=== PATIENT | female | born 1935 | race Caucasian/White ===

== ENCOUNTER 2017-10-23 07:06 | Emergency (ER) | payer MEDICARE ==
[2017-10-23 07:26] VITALS: BP 154/80
--- NOTE | 2017-10-24 21:57 | UC ---
- Progress Note Progress Note: + UTI + E. Coli on BActrim await sensitivity no change [facility] 10/24/2017
--- NOTE | 2017-11-05 16:16 | UC ---
Jacobo Penny Natalie, scribed for Linda Mancini DO on 10/23/17 at 0744 . Complaint Female HPI - HPI Summary HPI Summary: The pt is an 82 presenting to [facility] c/o UTI symptoms starting yesterday. On 10/09, the patient was diagnosed with a UTI and was prescribed Amoxicillin, which she finished on 10/18/17. Yesterday the pt noticed awareness of bladder and frequent urination. Pt denies back pain, flank pain, tenderness at opening of urethra, diarrhea, SOB, headache, fever, chills, rashes, confusion, and unsteady gait. She has had recurring UTIs since May 2017. The patient has a urology appointment with Dr. Valdez on 11/02/17. - History Of Current Complaint Chief Complaint: UCGU Stated Complaint: URINARY ISSUE Time Seen by Provider: 10/23/17 07:19 Hx Obtained From: Patient Onset/Duration: Lasting Hours - started yesterday, Still Present Timing: Lasting Hours Severity Initially: Mild Severity Currently: Mild Aggravating Factor(s): Nothing Alleviating Factor(s): Nothing Associated Signs And Symptoms: Positive: Vaginal Bleeding/Discharge. Negative: Fever, Back Pain - Allergies/Home Medications Allergies/Adverse Reactions: Allergies Allergy/AdvReac Type Severity Reaction Status Date / Time No Known Allergies Allergy Verified 10/23/17 07:25 Home Medications: Home Medications Aspirin [Aspirin 81 MG TAB] 81 mg PO DAILY 10/23/17 [History Confirmed 10/23/17] Calcium Carbonate-Cholecalcife [Calcium 600 + D 600-200 mg-Unit] 1 tab PO DAILY 10/23/17 [History Confirmed 10/23/17] Conjugated Estrogens VAG CM* [Premarin VAG CREAM*] 0.5 applic VAGINAL .SEE DIRECTIONS 10/23/17 [History Confirmed 10/23/17] Lisinopril [Zestril 5 MG-] 5 mg PO DAILY 10/23/17 [History Confirmed 10/23/17] Metoprolol Succinate [Metoprolol Succinate ER] 25 mg PO DAILY 10/23/17 [History Confirmed 10/23/17] Probiotic Product [Acidophilus] 1 cap PO DAILY 10/23/17 [History Confirmed 10/23] PMH/Surg Hx/FS Hx/Imm Hx Previously Healthy: No Cardiovascular History: Hypertension GI/ History: Other - recurring UTI Other GI/ History: recurring UTI - Surgical History Surgical History: Yes Surgery Procedure, Year, and Place: tonsillectomy - Family History Known Family History: Negative: Hypertension, Diabetes - Social History Alcohol Use: Daily Alcohol Amount: wine with diner Substance Use Type: None Smoking Status (MU): Never Smoked Tobacco - Immunization History Most Recent Influenza Vaccination: fall 2016 Review of Systems Constitutional: Other - NEGATIVE: fever, chills Skin: Other - NEGATIVE: rash Respiratory: Other - NEGATIVE: SOB Gastrointestinal: Other - NEGATIVE: flank pain, diarrhea Genitourinary: Hematuria, Frequency - increased, Other - POSITIVE: awareness of bladder; NEGATIVE: tenderness at opening of urethra Neurovascular: Other - NEGATIVE: confusion, unsteady gait Musculoskeletal: Other: - NEGATIVE: back pain All Other Systems Reviewed And Are Negative: Yes Physical Exam Triage Information Reviewed: Yes Vital Signs: Initial Vital Signs Temp 97.7 F 10/23/17 07:20 Pulse 69 10/23/17 07:20 Resp 16 10/23/17 07:20 BP 154/80 10/23/17 07:20 Pulse Ox 99 10/23/17 07:20 Vital Signs Reviewed: Yes - Additional Comments Appearance: Well-Appearing, No Pain Distress, Well-Nourished Eyes: conjunctiva clear, no discharge ENT: Hearing grossly normal, normal voice Neck: Normal, Supple Respiratory/Lung Sounds: Lungs clear, Normal breath sounds, No respiratory distress, No accessory muscle use Cardiovascular: RRR, No murmur Musculoskeletal: Normal Neurological: Alert, muscle tone normal Psychiatric: Normal, age appropriate behavior Skin: Normal, Warm, Dry, Normal color Complaint Female Dx - Course Course Of Treatment: Patient will be discharged with prescription for Bactrim and follow up from PCP. The patient is agreeable with this plan. Medications reviewed. Allergies reviewed. High blood pressure noted. - Differential Dx/Diagnosis Provider Diagnoses: UTI, HTN Discharge - Discharge Plan Condition: Stable Disposition: HOME Prescriptions: Sulfamethox/Trimethoprim DS* [Bactrim DS 800/160 TAB*] 1 tab PO BID #10 tab Patient Education Materials: Urinary Tract Infection in Older Adults (ED) Referrals: Branden Etienne MD [Medical Doctor] - If Needed No Primary Care Phys,NOPCP [Primary Care Provider] - Selvin Alvarez MD [Medical Doctor] - 11/02/17 Additional Instructions: ANTIBIOTIC THERAPY: You have been given an antibiotic prescription. It's important that you take all the medication, unless instructed otherwise by your physician. Failure to complete the entire course can result in relapse of your condition. Common side effects of antibiotics include nausea, intestinal cramping, or diarrhea. Women may develop vaginal yeast infections, and babies can get yeast (thrush) in the mouth following the use of antibiotics. Contact your physician if you develop significant side effects from this medication. Allergy to this antibiotic can result in hives, wheezing, faintness, or itching. If symptoms of allergy occur, stop the medication and call the doctor. ANYTIME YOU TAKE AN ANTIBIOTIC, IT IS IMPORTANT TO REPLENISH THE BODY'S SUPPLY OF "GOOD BACTERIA." YOU CAN GET GOOD BACTERIA FROM HIGH QUALITY CULTURED FOODS SUCH LOCAL YOGURT, SOUR KRAUT, LEONARD BRENDAN, NATURALLY FERMENTED PICKLES AND PROBIOTIC DRINKS. YOU CAN ALSO GET GOOD BACTERIA FROM A PROBIOTIC SUPPLEMENT. The documentation as recorded by the Jacobo laboy Natalie accurately reflects the service I personally performed and the decisions made by me, Linda Mancini DO.
== END 2017-10-23 08:05 | disposition home or self-care (01) ==
LOC: UCEAST 07:06
DX: N39.0 Urinary tract infection, site not specified (principal); R31.9 Hematuria, unspecified; B96.20 Unspecified Escherichia coli [E. coli] as the cause of diseases classified elsewhere; Z87.440 Personal history of urinary (tract) infections; I10 Essential (primary) hypertension
CPT/HCPCS: 81003; 87077; 87086; 87186; 99212; G0463

== ENCOUNTER 2017-11-25 15:17 | Emergency (ER) | payer MEDICARE ==
[2017-11-25 15:44] VITALS: BP 151/78
--- NOTE | 2017-11-25 16:10 | UC ---
Complaint Female HPI - History Of Current Complaint Chief Complaint: UCGU Stated Complaint: UTI Time Seen by Provider: 11/25/17 15:52 Hx Obtained From: Patient ?: No Onset/Duration: Sudden Onset - started last night with dysuria Severity Initially: Mild Severity Currently: Moderate Pain Intensity: 0 Character: Burning Aggravating Factor(s): Urination Alleviating Factor(s): Nothing Associated Signs And Symptoms: Negative: Fever, Vaginal Discharge - Allergies/Home Medications Allergies/Adverse Reactions: Allergies Allergy/AdvReac Type Severity Reaction Status Date / Time No Known Allergies Allergy Verified 11/25/17 15:45 PMH/Surg Hx/FS Hx/Imm Hx Previously Healthy: Yes Cardiovascular History: Hypertension - Surgical History Surgical History: Yes Surgery Procedure, Year, and Place: tonsillectomy - Family History Known Family History: Negative: Hypertension, Diabetes - Social History Occupation: Retired Lives: With Family Alcohol Use: Daily Alcohol Amount: wine with diner Substance Use Type: None Smoking Status (MU): Never Smoked Tobacco - Immunization History Most Recent Influenza Vaccination: fall 2016 Review of Systems Constitutional: Negative Respiratory: Negative Cardiovascular: Negative Gastrointestinal: Negative Genitourinary: Dysuria, Frequency, Urgency Neurological: Negative Psychological: Negative Is Patient Immunocompromised?: No All Other Systems Reviewed And Are Negative: Yes Physical Exam Triage Information Reviewed: Yes Appearance: Well-Appearing, No Pain Distress, Well-Nourished Vital Signs: Initial Vital Signs Temp 97.3 F 11/25/17 15:42 Pulse 73 11/25/17 15:42 Resp 12 11/25/17 15:42 BP 151/78 11/25/17 15:42 Pulse Ox 99 11/25/17 15:42 Vital Signs Reviewed: Yes Respiratory Exam: Normal Cardiovascular Exam: Normal Abdomen Description: Positive: Nontender, No Organomegaly, Soft Psychological Exam: Normal Skin Exam: Normal Complaint Female Dx - Differential Dx/Diagnosis Differential Diagnosis/HQI/PQRI: Ureteral Stone, Urinary Tract Infection Provider Diagnoses: UTI Discharge - Discharge Plan Condition: Stable Disposition: HOME Prescriptions: Levofloxacin TAB* [Levaquin TAB*] 250 mg PO DAILY #10 tab Referrals: Branden Etienne MD [Primary Care Provider] - 2 Days (if no better) Additional Instructions: DRink plenty of fluids use levaquin antibiotic as ordered follow-up with urologist as planned
== END 2017-11-25 16:39 | disposition home or self-care (01) ==
LOC: UCEAST 15:17
DX: N39.0 Urinary tract infection, site not specified (principal)
CPT/HCPCS: 81003; 87077; 87086; 87186; 99212; G0463

== ENCOUNTER 2018-05-30 09:22 | Emergency (ER) | payer MEDICARE ==
[2018-05-30 09:39] VITALS: BP 158/58
--- NOTE | 2018-05-30 09:53 | UC ---
Complaint Female HPI - HPI Summary HPI Summary: An 82 y/o F presents to E with c/o of hematuria first noticed this AM. Associated sx: frequency. Denies abd pain, n/v, fever, chills, back pain. She has a known kidney stone, but has no abd pain. Patient has about 3 UTIs per year. Patient sees Dr. Alvarez, urology. PMHx: HTN, arrhythmia. Non-smoker, occ ETOH, no drugs. - History Of Current Complaint Chief Complaint: UCGU Stated Complaint: URINARY ISSUE Time Seen by Provider: 05/30/18 09:32 Hx Obtained From: Patient Onset/Duration: Still Present, Other - noticed today Severity Currently: None Pain Intensity: 0 Pain Scale Used: 0-10 Numeric Associated Signs And Symptoms: Negative: Fever, Back Pain, Nausea, Vomiting(# Of Episodes =) - Allergies/Home Medications Allergies/Adverse Reactions: Allergies Allergy/AdvReac Type Severity Reaction Status Date / Time No Known Allergies Allergy Verified 05/30/18 09:39 Home Medications: Home Medications Simvastatin 20 mg PO DAILY WITH MEAL 05/30/18 [History Confirmed 05/30/18] PMH/Surg Hx/FS Hx/Imm Hx Previously Healthy: No Cardiovascular History: Hypertension Other Respiratory History: neg: asthma GI/ History: Other - recurring UTI Other GI/ History: recurring UTI - Surgical History Surgical History: Yes Surgery Procedure, Year, and Place: tonsillectomy - Family History Known Family History: Positive: Cardiac Disease Negative: Hypertension, Diabetes - Social History Occupation: Retired Lives: With Family Alcohol Use: Daily Alcohol Amount: wine with diner Substance Use Type: None Smoking Status (MU): Never Smoked Tobacco - Immunization History Most Recent Influenza Vaccination: fall 2016 Review of Systems Constitutional: Negative - fever, chills Gastrointestinal: Negative - abd pain, nausea, vomiting Genitourinary: Hematuria, Frequency Musculoskeletal: Negative - back pain All Other Systems Reviewed And Are Negative: Yes Physical Exam - Summary Physical Exam Summary: VITAL SIGNS: Reviewed. GENERAL: Patient is a well-developed and nourished FEMALE who is lying comfortable in the stretcher. Patient is not in any acute respiratory distress. HEAD AND FACE: Normocephalic EYES: PERRLA, EOMI x 2. EARS: Hearing grossly intact. MOUTH: Oropharynx within normal limits. NECK: Supple, trachea is midline, no adenopathy, no JVD, no carotid bruit. CHEST: Symmetric, no tenderness at palpation LUNGS: Clear to auscultation bilaterally. No wheezing or crackles. CVS: Regular rate and rhythm, S1 and S2 present, no murmurs or gallops appreciated. ABDOMEN: Soft, non-tender. Bowel sounds are normal. No abdominal abnormal pulsations. EXTREMITIES: Full ROM in all major joints, no edema, no cyanosis or clubbing. NEURO: Alert and oriented x 3. No acute neurological deficits. Speech is normal and follows commands. SKIN: Dry and warm Triage Information Reviewed: Yes Vital Signs: Initial Vital Signs Temp 98.2 F 05/30/18 09:33 Pulse 70 05/30/18 09:33 Resp 20 05/30/18 09:33 BP 158/58 05/30/18 09:33 Pulse Ox 71 05/30/18 09:33 Vital Signs Reviewed: Yes Complaint Female Dx - Course Course Of Treatment: The patient was found to have increased BP in UC. The patient will follow up with PCP for better control of BP. . Patient is an 82-year-old female who presents to the urgent care with hematuria, dysuria and urinary frequency. Urinalysis positive for leukocytes. Patient was given Bactrim. Patient was discharged home with follow-up with primary care physician and Dr. Alvarez who is her urologist. - Differential Dx/Diagnosis Provider Diagnoses: UTI. Discharge - Sign-Out/Discharge Documenting (check all that apply): Patient Departure - DC All imaging exams completed and their final reports reviewed: No Studies - Discharge Plan Condition: Stable Disposition: HOME Prescriptions: Sulfamethox/Trimethoprim DS* [Bactrim DS 800/160 TAB*] 1 tab PO BID #20 tab Patient Education Materials: Urinary Tract Infection in Women (ED) Referrals: Branden Etienne MD [Primary Care Provider] - Additional Instructions: FOLLOW UP WITH YOUR PRIMARY CARE PROVIDER WITHIN ONE WEEK FOR HIGH BLOOD PRESSURE NOTED TODAY. - Billing Disposition and Condition Condition: STABLE Disposition: Home - Attestation Statements Document Initiated by Scribe: Yes Documenting Scribe: Adriana Azevedo Provider For Whom Chiomaibe is Documenting (Include Credential): Jeffry Bhandari MD Scribe Attestation: Adriana Penny, scribed for Jeffry Bhandari MD on 05/30/18 at 1042. Scribe Documentation Reviewed: Yes Provider Attestation: The documentation as recorded by the scribe, Adriana Azevedo accurately reflects the service I personally performed and the decisions made by Jeffry bhat MD [employer] Course/Dx - Course Course Of Treatment: The patient was found to have increased BP in UC. The patient will follow up with PCP for better control of BP. - Clinical Impression Provider Diagnoses: UTI (urinary tract infection) Lab Results - Lab Results Lab Results: 05/30/18 09:49 POC Urine Color Light yellow POC Urine Clarity Slightly cloudy POC Urine pH 6.0 POC Ur Specif [place] <= 1.005 L POC Urine Protein Negative POC Ur Glucose (UA) Negative POC Urine Ketones Negative POC Urine Blood 3+ A POC Urine Nitrite Negative POC Urine Bilirubin Negative POC Urine Urobilinogen 0.2 POC U Leukocyte Esteras 3+ A
--- NOTE | 2018-05-31 16:15 | UC ---
- Progress Note Progress Note: 05/31/2018 Urine culture positive for E.Coli. Pt Rx Bactrim PO which cover for E.coli. Pending final report for sensitivity. No change Summer Lynn PA-C Course/Dx - Diagnoses Provider Diagnoses: UTI (urinary tract infection) Discharge - Sign-Out/Discharge Documenting (check all that apply): Patient Departure - D/c home All imaging exams completed and their final reports reviewed: No Studies - Discharge Plan Condition: Stable Disposition: HOME Prescriptions: Sulfamethox/Trimethoprim DS* [Bactrim DS 800/160 TAB*] 1 tab PO BID #20 tab Patient Education Materials: Urinary Tract Infection in Women (ED) Referrals: Branden Etienne MD [Primary Care Provider] - Additional Instructions: FOLLOW UP WITH YOUR PRIMARY CARE PROVIDER WITHIN ONE WEEK FOR HIGH BLOOD PRESSURE NOTED TODAY. - Billing Disposition and Condition Condition: STABLE Disposition: Home
== END 2018-05-30 10:17 | disposition home or self-care (01) ==
LOC: UCEAST 09:22
DX: N39.0 Urinary tract infection, site not specified (principal); I10 Essential (primary) hypertension; R03.0 Elevated blood-pressure reading, without diagnosis of hypertension
CPT/HCPCS: 81003; 87077; 87086; 87186; 99212; G0463

== ENCOUNTER 2019-09-18 10:41 | Emergency (ER) | payer MEDICARE ==
[2019-09-18 11:10] VITALS: BP 141/72
--- NOTE | 2019-09-18 11:15 | UC ---
Complaint Female HPI - HPI Summary HPI Summary: 84 yo female presents with UTI symptoms. She tells me that over the last 2 days has had urinary frequency and bladder pressure. Has had UTIs in the past and this feels the same. Last UTI was about 2 years ago. She sees Urology for her UTIs and states that she always uses bactrim. Denies fever, chills, abdominal pain, n/v, flank pain. - History Of Current Complaint Chief Complaint: UCGU Stated Complaint: URINARY ISSUE Time Seen by Provider: 09/18/19 11:14 Hx Obtained From: Patient Onset/Duration: Sudden Onset Severity Initially: Mild Severity Currently: Mild Pain Intensity: 1 Pain Scale Used: 0-10 Numeric - Allergies/Home Medications Allergies/Adverse Reactions: Allergies Allergy/AdvReac Type Severity Reaction Status Date / Time No Known Allergies Allergy Verified 09/18/19 11:05 PMH/Surg Hx/FS Hx/Imm Hx Endocrine History: Dyslipidemia Cardiovascular History: Hypertension - Surgical History Surgical History: Yes Surgery Procedure, Year, and Place: tonsillectomy - Family History Known Family History: Positive: Cardiac Disease Negative: Hypertension, Diabetes - Social History Alcohol Use: Daily Alcohol Amount: wine with dinner Substance Use Type: None Smoking Status (MU): Never Smoked Tobacco - Immunization History Most Recent Influenza Vaccination: fall 2016 Review of Systems All Other Systems Reviewed And Are Negative: No Constitutional: Positive: Negative Skin: Positive: Negative Respiratory: Positive: Negative Cardiovascular: Positive: Negative Genitourinary: Positive: Dysuria Neurological: Positive: Negative Psychological: Positive: Negative Physical Exam - Summary Physical Exam Summary: GENERAL: NAD. WDWN. No pain distress. SKIN: No rashes, sores, lesions, or open wounds. NECK: Supple. Nontender. No lymphadenopathy. CHEST: CTAB. No r/r/w. No accessory muscle use. Breathing comfortably and in no distress. CV: RRR. Pulses intact. Cap refill <2seconds ABDOMEN: Soft. NTTP. No distention or guarding. No organomegaly. No CVA tenderness. Bowel sounds present NEURO: Alert. PSYCH: Age appropriate behavior. Triage Information Reviewed: Yes Vital Signs: Initial Vital Signs Temp 98 F 09/18/19 11:06 Pulse 60 09/18/19 11:06 Resp 14 09/18/19 11:06 BP 141/72 09/18/19 11:06 Pulse Ox 98 09/18/19 11:06 Laboratory Tests 09/18/19 11:42 POC Urine Color Yellow POC Urine Clarity Slightly cloudy POC Urine pH 6.5 POC Ur Specif [place] 1.010 POC Urine Protein 1+ A POC Ur Glucose (UA) Negative POC Urine Ketones Negative POC Urine Blood 3+ A POC Urine Nitrite Negative POC Urine Bilirubin Negative POC Urine Urobilinogen 0.2 POC U Leukocyte Esteras 2+ A Vital Signs Reviewed: Yes Complaint Female Dx - Course Course Of Treatment: UA positive. Will send urine for culture and rx for bactrim - Differential Dx/Diagnosis Provider Diagnosis: UTI (urinary tract infection) Discharge ED - Sign-Out/Discharge Documenting (check all that apply): Patient Departure All imaging exams completed and their final reports reviewed: No Studies - Discharge Plan Condition: Stable Disposition: HOME Prescriptions: Sulfamethox/Trimethoprim DS* [Bactrim DS 800/160 TAB*] 1 tab PO BID #10 tab Patient Education Materials: Urinary Tract Infection in Women (ED) Referrals: Branden Etienne MD [Primary Care Provider] - Additional Instructions: If you develop a fever, shortness of breath, chest pain, new or worsening symptoms - please call your PCP or go to the ED immediately. - Billing Disposition and Condition Condition: STABLE Disposition: Home - Attestation Statements Provider Attestation: I was available for consult. This patient was seen by the JONATAN. The patient was not presented to, seen by, or examined by me. -Amy
== END 2019-09-18 12:00 | disposition home or self-care (01) ==
LOC: UCEAST 10:41
DX: N39.0 Urinary tract infection, site not specified (principal); I10 Essential (primary) hypertension
CPT/HCPCS: 81003; 87077; 87086; 87186; 99202; G0463